=== PATIENT | female | born 1980 | race Two or more races ===

== ENCOUNTER 2023-12-07 12:16 | Emergency (ER) | payer SELFPAY ==
[~2023-12-07] VITALS: Ht 167.6 cm; Wt 91.0 kg
[2023-12-07 12:18] VITALS: O2SAT 99
[2023-12-07] MEDS: IBUPROFEN 400MG TABLET PO ONE (13:47)
[2023-12-07] MEDS: LIDOCAINE 5% PATCH TOP SCH (13:48)
[2023-12-07] MEDS: METHOCARBAMOL 500MG TABLET PO ONE (13:48)
[2023-12-07] MEDS ORDERED: IBUP-2028 MT (15:51)
[2023-12-07] MEDS ORDERED: LIDO700A30 TP (15:51)
[2023-12-07] MEDS ORDERED: METH-653 MT (15:51)
[2023-12-07 16:15] VITALS: BP 140/89; PULSE 90; RESP 18; TEMP 98.2
== END 2023-12-07 16:18 | disposition home or self-care (01) ==
LOC: ER 13:26
DX: M54.50 Low back pain, unspecified (principal); J45.909 Unspecified asthma, uncomplicated; R07.9 Chest pain, unspecified; Z88.0 Allergy status to penicillin; Z88.6 Allergy status to analgesic agent; Z88.5 Allergy status to narcotic agent
CPT/HCPCS: 93005; 99283